=== PATIENT | male | born 1960 | race Caucasian/White ===

== ENCOUNTER 2017-03-24 13:29 | Inpatient (IN) | payer BC ==
[2017-03-24] MEDS ORDERED: ONDANSETRON ODT 8 MG TAB.RAPDIS PO STA (14:03)
[2017-03-24] MEDS ORDERED: LORazepam 1 MG TAB PO STA (14:03)
[2017-03-24] MEDS ORDERED: ONDANSETRON 4 MG/2 ML VIAL IVP STA (14:03)
[2017-03-24] MEDS ORDERED: SODIUM CHLORIDE 0.9% 1,000 ML IV STA ×2 (14:03→16:09)
[2017-03-24] MEDS ORDERED: HYDROcodone/APAP 5-325MG 1 EACH TAB PO STA (14:03)
[2017-03-24] MEDS ORDERED: MORPHINE SULFATE 4 MG/ML SYRINGE IV STA (14:03)
[2017-03-24] MEDS ORDERED: LORazepam 2 MG/ML SYRINGE IV STA (14:04)
[2017-03-24] MEDS ORDERED: CLINDAMYCIN 900 MG in DEXTROSE 5% IN WATER 50 ML IVPB STA ×2 (14:06)
--- NOTE | 2017-03-24 15:00 | ED ---
General Adult HPI - General Chief complaint: Wound/Laceration Stated complaint: Finger Lac Time Seen by Provider: 03/24/17 13:50 Source: patient, RN notes reviewed, old records reviewed Mode of arrival: ambulatory Limitations: no limitations - History of Present Illness Initial comments: This is a 48-year-old male year for evaluation of finger laceration. Patient caught finger in pinch of saw, severe pain to left middle finger, patient has gone attach at this time. Mild bleeding. Patient does feel nauseous feels he is given a passed out but denies any other injury. cephalosporin ALLERGIES. Injury happened hour prior to arrival - Related Data Home Medications Medication Instructions Recorded Confirmed Atorvastatin Calcium [Lipitor] 40 mg PO HS 03/24/17 03/24/17 Allergies Allergy/AdvReac Type Severity Reaction Status Date / Time cephalexin Allergy Rash/Hives/ Verified 03/24/17 14:30 Itching Review of Systems ROS Statement: Those systems with pertinent positive or pertinent negative responses have been documented in the HPI. ROS Other: All systems not noted in ROS Statement are negative. Past Medical History Past Medical History: No Reported History History of Any Multi-Drug Resistant Organisms: None Reported Past Surgical History: Tonsillectomy Additional Past Surgical History / Comment(s): BRAIN SURGERY, RIGHT SHOULDER, Past Anesthesia/Blood Transfusion Reactions: No Reported Reaction Past Psychological History: No Psychological Hx Reported Smoking Status: Former smoker Past Alcohol Use History: None Reported Past Drug Use History: None Reported - Past Family History Father Family Medical History: Cancer General Exam - General Exam Comments Initial Comments: Significant crush injury with laceration to left middle finger mild bleeding obvious deformity significantly deformed Limitations: no limitations General appearance: alert, in no apparent distress Head exam: Present: atraumatic, normocephalic, normal inspection Eye exam: Present: normal appearance, PERRL, EOMI. Absent: scleral icterus, conjunctival injection, periorbital swelling ENT exam: Present: normal exam, mucous membranes moist Neck exam: Present: normal inspection. Absent: tenderness, meningismus, lymphadenopathy Respiratory exam: Present: normal lung sounds bilaterally. Absent: respiratory distress, wheezes, rales, rhonchi, stridor Cardiovascular Exam: Present: regular rate, normal rhythm, normal heart sounds. Absent: systolic murmur, diastolic murmur, rubs, gallop, clicks GI/Abdominal exam: Present: soft, normal bowel sounds. Absent: distended, tenderness, guarding, rebound, rigid Extremities exam: Present: normal inspection, full ROM, normal capillary refill. Absent: tenderness, pedal edema, joint swelling, calf tenderness Back exam: Present: normal inspection Neurological exam: Present: alert, oriented X3, CN II-XII intact Psychiatric exam: Present: normal affect, normal mood Skin exam: Present: warm, dry, intact, normal color. Absent: rash Course Vital Signs 03/24/17 03/24/17 13:43 15:07 Temperature 98.7 F Pulse Rate 98 80 Respiratory 20 18 Rate Blood Pressure 159/90 152/90 O2 Sat by Pulse 98 98 Oximetry - Reevaluation(s) Reevaluation #1: 03/24/17 16:13 With orthopedics on-call, patient will go to the operating room today for fixation of left middle finger Reevaluation #2: 03/24/17 16:13 Patient's symptoms are improving at this time Medical Decision Making - Medical Decision Making 56 male here for evaluation of left hand injury, patient has left middle finger fracture, open, patient placed on antibiotics pain control and will admit for surgical fixation - Radiology Data Radiology results: report reviewed (X-ray left hand shows fracture of the left middle finger phalanx), image reviewed Disposition Clinical Impression: Fracture of phalanx of left middle finger Disposition: ADMITTED IP TO THIS [facility] Condition: Fair Referrals: Ashanti Vasques III, MD [Primary Care Provider] - 1-2 days
--- NOTE | 2017-03-24 15:21 | XR ---
EXAMINATION TYPE: XR hand complete RT DATE OF EXAM: 03/24/2017 COMPARISON: NONE HISTORY: Pain third digit caught in a trailer hitch TECHNIQUE: Three-view right hand FINDINGS: There is a transverse fracture through the proximal portion middle phalanx right middle fin maritza. There is extensive soft tissue injury over this site. No additional fractures are evident. IMPRESSION: 1. Transverse fracture proximal portion middle phalanx right middle finger. 2. Extensive soft tissue injury over the mid right middle phalanx
[2017-03-24 16:36] LABS: Basophils % (A) 0 %; CH 28.8; CHCM 34.8; Eosinophils # (A) 0.1 k/uL (0-0.7); Eosinophils % (A) 1 %; HCT 43.8 % (39.0-53.0); HDW 2.66; HGB 15.3 gm/dL (13.0-17.5); Luc # (Auto) 0.15; Luc % (Auto) 1; Lymphocytes # (A) 1.1 k/uL (1.0-4.8); Lymphocytes % (A) 8 %; MCHC 34.9 g/dL (31.0-37.0); MCV 83.1 fL (80.0-100.0); Mean Platelet Volume 7.5; Monocytes # (A) 0.5 k/uL (0-1.0); Monocytes % (A) 4 %; Neutrophils # (A) 10.8 k/uL (1.3-7.7); Neutrophils % (A) 86 %; RBC 5.27 m/uL (4.30-5.90); RDW 13.1 % (11.5-15.5); WBC 12.7 k/uL (3.8-10.6); WBC (Perox) 12.55
[2017-03-24 16:50] LABS: ALT 47 U/L (21-72); AST 29 U/L (17-59); Alkaline Phosphatase 104 U/L (38-126); Anion Gap 8 mmol/L; Blood Urea Nitrogen 14 mg/dL (9-20); Carbon Dioxide 24 mmol/L (22-30); Chloride 108 mmol/L (98-107); Glucose 102 mg/dL (74-99); Magnesium 1.7 mg/dL (1.6-2.3); Non-African American GFR(MDRD) >60 (>60 ml/min/1.73 sqM); Phosphorous 2.6 mg/dL (2.5-4.5); Sodium 140 mmol/L (137-145); Total Bilirubin 0.9 mg/dL (0.2-1.3); Total Protein 6.3 g/dL (6.3-8.2)
[2017-03-24 16:56] LABS: INR 1.3 (<1.2); Partial Thromboplastin Time 23.7 sec (22.0-30.0); Prothrombin Time 12.9 sec (9.0-12.0)
--- NOTE | 2017-03-24 17:03 | P.HPOR ---
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 He sustained a significant open injury to his finger and was brought to the emergency department by his . The ER identified an open fracture of the right middle finger middle phalanx and consulted orthopedics. At the time of my examination the patient is complaining of isolated pain in his right middle finger. He has no other complaints at the time of my evaluation. Past Medical History Past Medical History: No Reported History History of Any Multi-Drug Resistant Organisms: None Reported Past Surgical History: Tonsillectomy Additional Past Surgical History / Comment(s): BRAIN SURGERY, RIGHT SHOULDER, Past Anesthesia/Blood Transfusion Reactions: No Reported Reaction Past Psychological History: No Psychological Hx Reported Smoking Status: Former smoker Past Alcohol Use History: None Reported Past Drug Use History: None Reported - Past Family History Father Family Medical History: Cancer Medications and Allergies Home Medications Medication Instructions Recorded Confirmed Type Atorvastatin Calcium [Lipitor] 40 mg PO HS 03/24/17 03/24/17 History Allergies Allergy/AdvReac Type Severity Reaction Status Date / Time cephalexin Allergy Rash/Hives/ Verified 03/24/17 14:30 Itching Physical Examination The patient is in no apparent distress and is alert and oriented 3. His head is normocephalic and atraumatic. He demonstrates nonlabored breathing with symmetric chest expansion. His abdomen is soft, nontender and nonobese. A focused examination of the right upper extremity was conducted. On inspection of the right hand there is a dressing saturated with blood over the right hand which was taken down. There is an open wound over the volar and dorsal aspect of the middle finger at the level of the middle phalanx. The tip of the finger appears pink and viable with brisk capillary refill. Sensation is intact to light touch along both the ulnar and radial border of the tip of the middle finger. No attempts at were made to assess flexor or extensor tendon function due to pain. The remainder of the right hand is intact with no open wounds or areas of tenderness. Results X-rays of the right hand show a displaced fracture at the base of the middle phalanx of the middle finger. There is an obvious soft tissue defect seen on x- rays. There are no foreign bodies noted. - Labs Labs: Abnormal Lab Results - Last 24 Hours (Table) 03/24/17 03/24/17 Range/Units 16:18 16:18 WBC 12.7 H (3.8-10.6) k/uL Neutrophils # 10.8 H (1.3-7.7) k/uL Chloride 108 H (98-107) mmol/L Glucose 102 H (74-99) mg/dL H & H 03/24/17 Range/Units 16:18 Hgb 15.3 (13.0-17.5) gm/dL Hct 43.8 (39.0-53.0) % Result Diagrams: 03/24/17 16:18 03/24/17 16:18 Assessment and Plan (1) Fracture of phalanx of left middle finger Status: Acute Plan: I examined the patient in the emergency department and discussed treatment options with him and his . I recommended performing a washout of the open fracture in the operating room as well as an exploration of the wound and stabilization of the finger with either a K wire or splint. We discussed that this would be a temporizing procedure and that he would need definitive care with a hand specialist to address any tendon or digital nerve lacerations and to definitively address the fracture. I also discussed the case with my hand partner Dr. Derrek Weir was currently out of town. He agreed with this plan to washout the finger and stabilize it. He agreed to see the patient early next week to discuss definitive treatment. I discussed the potential risks and complication of surgery with the patient including but not limited to risk of anesthesia, risk of superficial wound infection, risk of deep wound infection, risk of damage to blood vessels or nerves, risk of stiffness in the finger, risk of numbness in the finger, risk of need for further surgery, and possibly risk of an amputation. The patient and his voiced her understanding of this. They agreed to go forward with surgery. Following surgery we'll plan on discharging the patient home a sterile dressing with oral antibiotics to follow- up with Dr. Derrek Weir early next week.
[2017-03-24] MEDS ORDERED: ePHEDrine SULFATE/0.9% NACL/PF 50 MG/5 ML SYRINGE IV ONE (17:53)
[2017-03-24] MEDS ORDERED: PROPOFOL 10 MG/ML 20 ML VIAL IV ONE (17:53)
[2017-03-24] MEDS ORDERED: KETAMINE 10 MG/ML 20 ML VIAL ONE (17:53)
[2017-03-24] MEDS ORDERED: IV FLUID CONTINUATION 300 ML IV ONE (17:53)
[2017-03-24] MEDS ORDERED: MIDAZOLAM 2 MG/2 ML VIAL ONE (17:53)
[2017-03-24] MEDS ORDERED: BUPIVACAINE (PF) 0.5% 30 ML VIAL SQ ONE ×2 (18:17)
[2017-03-24] MEDS ORDERED: LACTATED RINGERS 1,000 ML IV ONE (18:18)
[2017-03-24] MEDS ORDERED: HYDROcodone/APAP 5-325MG 1 EACH TAB PO PRN ×2 (18:55)
[2017-03-24] MEDS ORDERED: HYDROmorphone 1 MG/ML 1 ML SYRINGE IVP PRN ×2 (18:55)
--- NOTE | 2017-03-24 19:03 | FL ---
Fluoroscopy INDICATION: Pain FINDINGS: Fluoroscopy time: 1 seconds. Images obtained: 2. IMPRESSIONS: 1. Documentation of fluoroscopy.
[2017-03-24 19:04] VITALS: RESP 16
--- NOTE | 2017-03-24 19:06 | P.OP ---
Date of Procedure: 03/24/17 Preoperative Diagnosis: 1. Open middle phalanx fracture, right middle finger Postoperative Diagnosis: 1. Open middle phalanx fracture, right middle finger 2. Zone 2 extensor tendon laceration, right middle finger Procedure(s) Performed: 1. Irrigation and debridement of open middle phalanx fracture, right middle finger as part of a staged procedure (1 L of sterile saline was used to irrigate the open fracture, a scalpel was used to sharply debride nonviable skin and subcutaneous tissue down to bone) 2. Open reduction and pinning of right middle finger middle phalanx fracture as part of a staged procedure Implants: Anesthesia: MAC, local Surgeon: Galdino Zamora Estimated Blood Loss (ml): 20 IV fluids (ml): 500 Pathology: none sent Condition: stable Disposition: PACU Indications for Procedure: The patient is appears healthy 56-year-old male who sustained an isolated injury to his right middle finger earlier today. He was seen in the emergency department and had a complex laceration and open fracture of the middle phalanx. I discussed treatment with the patient and my hand partner. We decided to go forward with an irrigation and debridement in the operating room as well as a pinning to stabilize the finger followed by a closure of the wound to temporize the patient's injury until he can be seen later this week by my hand partner. We discussed potential risks and complication of surgery including but not limited to risks of anesthesia, risk of damage to local blood vessels or nerves, risk of superficial infection, risk of deep infection, risk of delayed wound healing, risk of fracture nonunion, risk of pin migration, risk of stiffness, risk of damage the joint surfaces, risk of need for an amputation, and possibly loss of life or limb. The patient and his understand these potential complications and that his injury will be definitively managed by my hand partner Dr. Derrek Weir. Operative Findings: Open fracture middle phalanx right middle finger. Zone 2 extensor tendon laceration, right middle finger. Violation of the flexor tendon sheath but no flexor tendon laceration. Description of Procedure: The patient was identified in preoperative holding and the correct right hand and middle finger were marked with my initials. I reviewed the consent form with the patient and his . The patient was then brought back to the operating room. He was positioned on the gurney in a hand table was placed under his arm. A Mac anesthetic was administered. A timeout was then performed identifying the correct patient, operative extremity, and procedure. At this point a digital block was performed at the base of the right middle finger using half percent Marcaine. The patient's right arm was then prepped and draped in the standard sterile fashion. The patient's arm was elevated and the tourniquet was brought up to 250 mmHg. I began by copiously irrigating the wound with 1 L of sterile saline using cystoscopy tubing. There is a small amount of dirt and foreign bodies that were sharply removed. A 15 blade scalpel was used to remove devitalized skin and subcutaneous tissue down to the level of the bone. On exploration of the cleansed wound there was an obvious extensor tendon laceration directly over the fracture site. The wound extended volarly down to the flexor tendon sheath but there were no flexor tendon lacerations. At this point I elected to place a 0.045 K wire across the fracture to stabilize the finger. The K wire was started within the fracture and driven antegrade out the tip of the finger. The fracture was reduced and the wire was driven across the PIP joint stabilizing the middle finger. The wound was once again irrigated. The skin was loosely approximated using 3-0 nylon horizontal mattress stitches. The tourniquet was let down. I verified that all instrument, sponge, and sharp counts were correct. A sterile dressing consisting of Betadine soaked Adaptic, 4 x 4, web roll, and Jarvis wrap was applied. The tip of the finger was warm and well-perfused brisk capillary refill. The sharp end of the K wire was cut and a ball was placed over the cut end. The patient was then brought to PACU having tied the procedure well. Plan: The patient is going to be discharged home as an outpatient. He is given a prescription for Bactrim double strength twice a day and [place]. He will follow-up in 2-3 days in the office with Dr. Derrek Weir for definitive treatment.
[2017-03-24 19:37] VITALS: BP 146/95; PULSE 77; TEMP 97.1
== END 2017-03-24 20:31 | disposition home or self-care (01) | DRG 514 ==
LOC: EC 13:29 → 3SUR 16:10
PROVIDERS: ADMIT Orthopaedic Surgery; ATTEND Orthopaedic Surgery
PROC: 0PST04Z Reposition Right Finger Phalanx with Internal Fixation Device, Open Approach (ICD-10-PCS; principal; 2017-03-24 17:21)
DX: S62.622B Displaced fracture of middle phalanx of right middle finger, initial encounter for open fracture (principal); Z88.1 Allergy status to other antibiotic agents; Z87.891 Personal history of nicotine dependence; Z79.899 Other long term (current) drug therapy; W31.89XA Contact with other specified machinery, initial encounter; Y92.9 Unspecified place or not applicable
CPT/HCPCS: 80053; 83735; 84100; 85025; 85610; 85730; 96361; 96365; 96375; 99285